=== PATIENT | female | born 1950 | race Caucasian/White ===

== ENCOUNTER 2019-12-21 09:05 | Emergency (ER) | payer BC ==
[~2019-12-21] VITALS: Ht 152.4 cm; Wt 50.0 kg
[2019-12-21] MEDS ORDERED: KETOROLAC 30MG/ML VIAL IV STA (09:23)
[2019-12-21] MEDS ORDERED: SODIUM CHLORIDE 0.9% 1000ML BAG (SEPSIS BOLUS) IV ONE (09:30)
[2019-12-21] MEDS ORDERED: METOCLOPRAMIDE HCL 10MG/2ML VIAL IV ONE (09:30)
[2019-12-21 09:45] LABS: BASOPHILS % 0.5 % (0.0-2.0); EOSINOPHILS % 1.7 % (0.0-5.0); HEMATOCRIT. 40.7 % (36.0-48.0); HEMOGLOBIN. 14.1 g/dL (12.0-16.0); LYMPHOCYTES % 16.2 % (20.0-50.0); MEAN CORPUSCULAR HEMOGLOBIN 29.7 pg (28.0-32.0); MEAN CORPUSCULAR VOLUME 85.6 fL (81.0-99.0); MEAN PLATELET VOLUME 7.6 fl (7.4-10.4); MONOCYTES % 3.5 % (2.0-8.0); NEUTROPHILS % 78.1 % (40.0-76.0); PLATELET 255 x1000/uL (130-400); RED BLOOD CELL COUNT 4.76 mill/uL (4.2-5.4); RED CELL DISTRIBUTION WIDTH 15.2 % (11.6-14.6)
[2019-12-21 09:51] LABS: CHLORIDE 108 mEq/L (98-107)
[2019-12-21 09:52] LABS: PROTHROMBIN TIME 10.7 sec (9.6-11.0)
[2019-12-21] MEDS ORDERED: KETOROLAC 30MG/ML VIAL IV ONE (11:15)
[2019-12-21 11:39] LABS: CLARITY URINE CLEAR (CLEAR); COLOR URINE YELLOW (YELLOW); KETONES URINE NEGATIVE (NEGATIVE); LEUKOCYTE ESTERASE URINE NEGATIVE (NEGATIVE); NITRITE URINE NEGATIVE (NEGATIVE); OCCULT BLOOD URINE NEGATIVE (NEGATIVE); PROTEIN URINE NEGATIVE (NEGATIVE); SPECIFIC GRAVITY URINE 1.011 (1.005-1.030); UROBILINOGEN URINE 0.2 E.U./dL (0.2-1.0)
[2019-12-21] MEDS ORDERED: ACETAMINOPHEN 325MG TABLET PO ONE (14:15)
[2019-12-21] MEDS ORDERED: IOHEXOL-350 100 ML BOTTLE ONE (14:52)
[2019-12-21] MEDS ORDERED: LABETALOL HCL 20MG/4ML CARPUJECT IV ONE (15:30)
[2019-12-21] MEDS ORDERED: LABETALOL 5MG/ML SYR 20 MG/4 ML SYRINGE IV ONE ×3 (15:45→17:04)
[2019-12-21 16:24] VITALS: BP 166/67
== END 2019-12-21 17:21 | disposition short-term general hospital (02) ==
LOC: ER 09:05 → CANBEDREQ 16:47 → ER 17:21
DX: I60.9 Nontraumatic subarachnoid hemorrhage, unspecified (principal)
CPT/HCPCS: 36415; 70496; 71045; 80053; 81003; 83605; 84145; 84484; 85025; 85610; 87040; 87086; 93005; 96374; 96375; 96376; 99291; J1885; J2765; J3490; J7030; Q9967